=== PATIENT | female | born 1950 | race African-American/Black ===

== ENCOUNTER 2022-12-15 11:02 | Observation (INO) | payer MEDICARE, MEDICAID ==
[~2022-12-15 11:02] MED LIST: Iopamidol-370 76% 500 ML MDV (1 ML CHARGE) ONE
[2022-12-15] MEDS ORDERED: Ketorolac Tromethamine 30 MG/ML VIAL ONE (12:33)
[2022-12-15 13:26] LABS: #Basophils 0.1 thou/uL (0.0-0.2); #Eosinphils 0.2 thou/uL (0.0-0.7); #Monocytes 0.8 thou/uL (0.11-0.59); #Neutrophils 11.9 thou/uL (1.40-6.50); %Basophils 0.4 % (0.0-1.0); %Eosinophils 1.2 % (0.0-10.0); %Lymphocytes 11.3 % (21.0-51.0); %Monocytes 5.7 % (0.0-10.0); %Neutrophils 80.9 % (42.0-75.0); Hematocrit 36.9 % (36.0-47.0); Hemoglobin 11.9 g/dL (12.0-16.0); Mean Corpuscular HGB CONC 32.2 g/dL (32.0-36.0); Mean Corpuscular Hemoglobin 27.4 pg (27.0-31.0); Mean Platelet Volume 10.7 fL (7.4-10.4); Platelet Count 226 10x3/uL (130-400); RBC Distribution Width 13.1 % (11.5-14.5); Red Blood Cell (RBC) Count 4.34 mill/uL (4.20-5.40); White Blood Cell (WBC) Count 14.7 10x3/uL (4.8-10.8)
[2022-12-15 13:52] LABS: Troponin I Less than 0.010 ng/mL (< 0.028)
[2022-12-15 14:40] LABS: Albumin 3.9 g/dL (3.4-4.8)
[2022-12-15] MEDS ORDERED: Dextrose 5% in Water 1,000 ML IV PRN (14:40)
[2022-12-15] MEDS ORDERED: Dextrose 50% Abboject 50 ML SYRINGE SLOW IVP PRN (14:40)
[2022-12-15] MEDS ORDERED: Ondansetron ODT 4 MG TAB PO PRN (14:40)
[2022-12-15] MEDS ORDERED: TETANUS, DIPHTHERIA TOX,ADULT (TDVAX) 0.5 ML VIAL IM ONE (14:40)
[2022-12-15] MEDS ORDERED: Glucagon 1 MG/ML KIT IM PRN (14:40)
[2022-12-15 14:41] LABS: Chloride 101 mmol/L (98-107); Potassium 4.3 mmol/L (3.5-5.1); Sodium 138 mmol/L (136-145)
[2022-12-15 14:42] LABS: Calcium 9.6 mg/dL (7.8-10.44); Glucose 295 mg/dL (80-115)
[2022-12-15 14:43] LABS: Globulin 3.3 g/dL (2.4-3.5); Protein, Total 7.2 g/dL (5.8-8.1)
[2022-12-15 14:44] LABS: Anion Gap 12 mmol/L (10-20); Bilirubin, Total 0.6 mg/dL (0.2-1.2); Carbon Dioxide 29 mmol/L (23-31)
[2022-12-15 14:45] LABS: Alkaline Phosphatase 85 U/L (40-110)
[2022-12-15] MEDS ORDERED: Rib Fracture Protocol PO SCH (14:45)
[2022-12-15 14:46] LABS: Calc. Creatinine Clearance 0 mL/min (70-130); Estimated GFR 86
[2022-12-15 14:47] LABS: BUN (Urea Nitrogen) 15 mg/dL (9.8-20.1)
[2022-12-15 14:48] LABS: ALT (SGPT) 30 U/L (8-55); AST (SGOT) 38 U/L (5-34)
[2022-12-15] MEDS ORDERED: Cyclobenzaprine 10 MG TAB PO PRN ×2 (15:15)
[2022-12-15 15:58] VITALS: BMI 18.2
[2022-12-15] MEDS: Acetaminophen 500 MG TAB PO SCH (17:58)
[2022-12-15] MEDS: traMADol HCl 50 MG TAB PO SCH (17:58)
[2022-12-15] MEDS ORDERED: Acetaminophen 650 MG Suppository PR SCH (18:00)
[2022-12-15] MEDS ORDERED: Ketorolac Tromethamine 30 MG/ML VIAL IVP SCH (18:00)
[2022-12-15] MEDS ORDERED: traMADol HCl 50 MG TAB PO SCH (18:00)
[2022-12-15] MEDS: HumaLOG 300 UNITS/3 ML VIAL SC PRN (18:11)
[2022-12-15] MEDS: Ipratropium/Albuterol 3 ML NEB NEB SCH (18:32)
[2022-12-15] MEDS ORDERED: MINERAL OIL/WHITE PETROLATUM 3.5 GM TUBE R EYE SCH (21:00)
[2022-12-15] MEDS ORDERED: Gabapentin 300 MG CAP PO SCH (21:00)
[2022-12-15] MEDS: cycloSPORINE 0.05% Ophthalmic Droperette EA EYE SCH (21:25)
[2022-12-15] MEDS: Gabapentin 100 MG CAP PO SCH (21:26)
[2022-12-15] MEDS: Ibuprofen 200 MG TAB PO SCH (21:26)
[2022-12-15] MEDS: Famotidine 20 MG TAB PO SCH (21:27)
[2022-12-15] MEDS ORDERED: Ibuprofen 200 MG TAB PO SCH (22:00)
[2022-12-16] MEDS: traMADol HCl 50 MG TAB PO SCH ×4 (00:04→14:30)
[2022-12-16] MEDS: Acetaminophen 500 MG TAB PO SCH ×4 (00:04→14:30)
[2022-12-16] MEDS: Ipratropium/Albuterol 3 ML NEB NEB SCH ×2 (00:16→06:52)
[2022-12-16] MEDS: Ibuprofen 200 MG TAB PO SCH ×3 (05:36→16:22)
[2022-12-16] MEDS: HumaLOG 300 UNITS/3 ML VIAL SC PRN (05:40)
[2022-12-16] MEDS ORDERED: Ipratropium/Albuterol 3 ML NEB NEB PRN (07:19)
[2022-12-16] MEDS ORDERED: HumaLOG 300 UNITS/3 ML VIAL SC PRN (07:51)
[2022-12-16] MEDS ORDERED: Multivit, Therapeutic 1 TAB PO SCH (09:00)
[2022-12-16] MEDS ORDERED: Aspirin Chewable 81 MG TAB PO SCH (09:00)
[2022-12-16] MEDS ORDERED: Ascorbic Acid 500 mg Chewable Tablet PO SCH (09:00)
[2022-12-16] MEDS ORDERED: Polyethylene Glycol 3350 17 GM Packet PO SCH (09:00)
[2022-12-16] MEDS: Famotidine 20 MG TAB PO SCH (10:40)
[2022-12-16] MEDS: Gabapentin 100 MG CAP PO SCH ×2 (10:40→16:23)
[2022-12-16 11:24] VITALS: BP 128/77; TEMP 97.5
[2022-12-16] MEDS: cycloSPORINE 0.05% Ophthalmic Droperette EA EYE SCH (12:28)
== END 2022-12-16 18:15 ==
LOC: ERS 11:02 → SURG A 13:32
PROVIDERS: ADMIT Surgery; ATTEND Surgery
DX: S22.41XA Multiple fractures of ribs, right side, initial encounter for closed fracture (principal); S42.101A Fracture of unspecified part of scapula, right shoulder, initial encounter for closed fracture; S42.001A Fracture of unspecified part of right clavicle, initial encounter for closed fracture; I10 Essential (primary) hypertension; E11.9 Type 2 diabetes mellitus without complications; G89.11 Acute pain due to trauma; Z79.82 Long term (current) use of aspirin; Z79.899 Other long term (current) drug therapy; Z86.73 Personal history of transient ischemic attack (TIA), and cerebral infarction without residual deficits; W05.0XXA Fall from non-moving wheelchair, initial encounter
CPT/HCPCS: 70450; 71045; 71260; 72125; 73030; 74177; 80053; 82962 ×2; 84484; 85025; 96374; 97110; 97112; 99285; G0378 ×3; 36416; G0390; J1815; J1885; Q9967